=== PATIENT | female | born 1950 | race Caucasian/White ===

== ENCOUNTER 2017-10-17 08:33 | Day surgery (SDC) | payer BC, MEDICARE ==
[~2017-10-17 08:33] MED LIST: Lactated Ringers 1,000 ML IV SCH
[2017-10-17] MEDS ORDERED: fentaNYL 100 MCG/2 ML SDV ONE (10:08)
[2017-10-17] MEDS ORDERED: Propofol 200 MG/20 ML SDV ONE ×2 (10:08→10:56)
--- NOTE | 2017-10-17 15:00 | OR ---
PREOPERATIVE DIAGNOSIS: History of colon polyps. POSTOPERATIVE DIAGNOSIS: History of colon polyps. PROCEDURES PERFORMED: Colonoscopy. INDICATION: The patient is a 67-year-old female with history of colon polyps in the past, who presents for repeat colonoscopy. PROCEDURE IN DETAIL: This was done in the procedure room. Sedation was given per Anesthesia. She was placed in left lateral position. First, the rectal exam was done and was normal. Scope was introduced into the rectum and slowly advanced through the rectum, sigmoid, descending, transverse, and ascending colon until the cecum, which was reached. Upon reaching the cecum, the scope was slowly withdrawn looking at all mucosal surfaces on the way out. No mucosal abnormalities, lesions, or polyps were noted. FINAL DIAGNOSIS: Normal colonoscopy. BKD: 10/17/2017 11:26:24 MODL: 10/17/2017 14:52:13 /[id number]
== END 2017-10-17 12:35 | disposition home or self-care (01) ==
LOC: VM.SDS 08:33
PROVIDERS: ATTEND Surgery
DX: Z12.11 Encounter for screening for malignant neoplasm of colon (principal); Z86.010 Personal history of colon polyps; Z88.8 Allergy status to other drugs, medicaments and biological substances; Z79.899 Other long term (current) drug therapy; Z90.710 Acquired absence of both cervix and uterus; Z79.82 Long term (current) use of aspirin; Z91.041 Radiographic dye allergy status
CPT/HCPCS: J2704; J3010; J7120